=== PATIENT | female | born 1950 | race Caucasian/White ===

== ENCOUNTER 2019-03-15 08:07 | Day surgery (SDC) | payer OTHER ==
[~2019-03-15] VITALS: Ht 157.5 cm; Wt 117.1 kg
[~2019-03-15 08:07] MED LIST: ASPI81CH PO; ASPI81EC PO; ATEN25 PO; Aspir 8181 MG PO; BRIM.15SO OU; CALCIUM PO; CYAN1000 PO; DICL250 PO; FURO40 PO; GABA300 PO; GABA600 PO; GLIM2; HYOS0.375T PO; IBUP800 PO; INSLI100I SC; INSULANI SC; INSULANPEN SQ; LIDO5TP TOP; LOSHYD PO; LOSHYD100 PO; LOVA40; METO25ER PO; Micro-K10 MEQ; Oyster Shell C500 MG PO; PANT40 PO; ROSU10TA PO; ROSU5 PO; SITA100T2 PO; Silvadene20 GM TOP; VITAMIN B122500 MCG PO; [UNRECOGNIZED DRUG - OTHER] PO
--- NOTE | 2019-03-15 09:06 | NUR ---
03/15/19 0906 Kanwal Contreras 1 CODIE RAMIREZ HANDLE IN RIGHT ARM TOOK OUT 2 LEFT AC GOOD
--- NOTE | 2019-03-15 09:37 | NUR ---
03/15/19 0937 Keely Rivas O2 10L VIA FACE MASK
== END 2019-03-15 10:18 | disposition home or self-care (01) ==
LOC: ORSCSDS 08:07
PROVIDERS: Surgery
PROC: 0DJD8ZZ Inspection of Lower Intestinal Tract, Via Natural or Artificial Opening Endoscopic (ICD-10-PCS; principal; 2019-03-15 09:15)
DX: Z12.11 Encounter for screening for malignant neoplasm of colon (principal); I12.9 Hypertensive chronic kidney disease with stage 1 through stage 4 chronic kidney disease, or unspecified chronic kidney disease; E11.22 Type 2 diabetes mellitus with diabetic chronic kidney disease; N18.9 Chronic kidney disease, unspecified; Z79.4 Long term (current) use of insulin; Z79.899 Other long term (current) drug therapy; J44.9 Chronic obstructive pulmonary disease, unspecified; Z87.891 Personal history of nicotine dependence; E66.01 Morbid (severe) obesity due to excess calories; Z68.42 Body mass index [BMI] 45.0-49.9, adult
CPT/HCPCS: 82947; J2405; J2704; J7120

== ENCOUNTER → 2020-04-30 | Outpatient (CLI) | payer OTHER ==
[~2020-04-30] MED LIST changes: +ALPHAGAN P5 ML BOTHEYES; +B-121000 MC3 PO; +BACTRIM DS TAB1 EAC6 PO; +BASAGLAR K100 UNIT/1 SC; +CALCIUM CARBON500 M1 PO; +HUMALOG100 UNIT/1 SC; -INSLI100I SC; +LOSARTAN-HCTZ1 EAC5 PO; -LOSHYD100 PO; -LOVA40; +LOVA40 PO; -Micro-K10 MEQ; +Micro-K10 MEQ PO; -Oyster Shell C500 MG PO; +PANT20 PO; -VITAMIN B122500 MCG PO; +XARELTO20 MG PO
== END ==
LOC: LAB SHORT 18:23 → LAB EV 18:23
DX: L03.115 Cellulitis of right lower limb (principal)
CPT/HCPCS: 87070; 87075; 87205

== ENCOUNTER 2020-06-08 00:39 | Day surgery (SDC) | payer OTHER ==
[~2020-06-08 00:39] MED LIST changes: -ALPHAGAN P5 ML BOTHEYES; -BACTRIM DS TAB1 EAC6 PO; -BASAGLAR K100 UNIT/1 SC; -PANT20 PO; -XARELTO20 MG PO
[2020-07-21] MEDS ORDERED: BASAGLAR K100 UNIT/1 SC (17:40)
[2020-07-21] MEDS ORDERED: ALPHAGAN P5 ML BOTHEYES (18:38)
[2020-07-21] MEDS ORDERED: PANT20 PO (18:39)
[2020-07-27] MEDS ORDERED: ATEN25 PO (16:42)
[2020-07-27] MEDS ORDERED: XARELTO20 MG PO (16:42)
[2020-07-27] MEDS ORDERED: BACTRIM DS TAB1 EAC6 PO (16:42)
== END 2020-06-08 23:58 | disposition home or self-care (01) ==
LOC: WOUND 00:39
DX: E11.622 Type 2 diabetes mellitus with other skin ulcer (principal); L97.821 Non-pressure chronic ulcer of other part of left lower leg limited to breakdown of skin; L97.811 Non-pressure chronic ulcer of other part of right lower leg limited to breakdown of skin; J44.9 Chronic obstructive pulmonary disease, unspecified; I25.10 Atherosclerotic heart disease of native coronary artery without angina pectoris; E11.40 Type 2 diabetes mellitus with diabetic neuropathy, unspecified; E11.51 Type 2 diabetes mellitus with diabetic peripheral angiopathy without gangrene; E11.22 Type 2 diabetes mellitus with diabetic chronic kidney disease; N18.6 End stage renal disease; Z79.4 Long term (current) use of insulin; Z88.5 Allergy status to narcotic agent; Z88.8 Allergy status to other drugs, medicaments and biological substances; Z91.048 Other nonmedicinal substance allergy status; Z87.891 Personal history of nicotine dependence
CPT/HCPCS: G0463

== ENCOUNTER 2020-06-15 00:52 | Day surgery (SDC) | payer OTHER ==
[2020-07-21] MEDS ORDERED: BASAGLAR K100 UNIT/1 SC (17:40)
[2020-07-21] MEDS ORDERED: ALPHAGAN P5 ML BOTHEYES (18:38)
[2020-07-21] MEDS ORDERED: PANT20 PO (18:39)
[2020-07-27] MEDS ORDERED: BACTRIM DS TAB1 EAC6 PO (16:42)
[2020-07-27] MEDS ORDERED: ATEN25 PO (16:42)
[2020-07-27] MEDS ORDERED: XARELTO20 MG PO (16:42)
== END 2020-06-15 22:55 | disposition home or self-care (01) ==
LOC: WOUND 00:52
DX: E11.622 Type 2 diabetes mellitus with other skin ulcer (principal); L97.921 Non-pressure chronic ulcer of unspecified part of left lower leg limited to breakdown of skin; L97.911 Non-pressure chronic ulcer of unspecified part of right lower leg limited to breakdown of skin; E11.59 Type 2 diabetes mellitus with other circulatory complications; I87.2 Venous insufficiency (chronic) (peripheral)
CPT/HCPCS: A9270

== ENCOUNTER 2020-06-23 00:56 | Day surgery (SDC) | payer OTHER ==
[2020-07-21] MEDS ORDERED: BASAGLAR K100 UNIT/1 SC (17:40)
[2020-07-21] MEDS ORDERED: ALPHAGAN P5 ML BOTHEYES (18:38)
[2020-07-21] MEDS ORDERED: PANT20 PO (18:39)
[2020-07-27] MEDS ORDERED: ATEN25 PO (16:42)
[2020-07-27] MEDS ORDERED: XARELTO20 MG PO (16:42)
[2020-07-27] MEDS ORDERED: BACTRIM DS TAB1 EAC6 PO (16:42)
== END 2020-06-23 23:22 | disposition home or self-care (01) ==
LOC: WOUND 00:56
DX: E11.622 Type 2 diabetes mellitus with other skin ulcer (principal); L97.829 Non-pressure chronic ulcer of other part of left lower leg with unspecified severity; L97.819 Non-pressure chronic ulcer of other part of right lower leg with unspecified severity; L03.116 Cellulitis of left lower limb; E11.59 Type 2 diabetes mellitus with other circulatory complications; I87.2 Venous insufficiency (chronic) (peripheral)
CPT/HCPCS: 87070; 87205; G0463

== ENCOUNTER 2020-07-07 00:34 | Day surgery (SDC) | payer OTHER ==
[2020-07-21] MEDS ORDERED: BASAGLAR K100 UNIT/1 SC (17:40)
[2020-07-21] MEDS ORDERED: ALPHAGAN P5 ML BOTHEYES (18:38)
[2020-07-21] MEDS ORDERED: PANT20 PO (18:39)
[2020-07-27] MEDS ORDERED: BACTRIM DS TAB1 EAC6 PO (16:42)
[2020-07-27] MEDS ORDERED: XARELTO20 MG PO (16:42)
[2020-07-27] MEDS ORDERED: ATEN25 PO (16:42)
== END 2020-07-07 22:46 | disposition home or self-care (01) ==
LOC: WOUND 00:34
DX: E11.622 Type 2 diabetes mellitus with other skin ulcer (principal); L98.499 Non-pressure chronic ulcer of skin of other sites with unspecified severity; E11.59 Type 2 diabetes mellitus with other circulatory complications; I87.2 Venous insufficiency (chronic) (peripheral); L03.116 Cellulitis of left lower limb
CPT/HCPCS: A9270; G0463

== ENCOUNTER 2020-07-14 00:32 | Day surgery (SDC) | payer OTHER ==
[2020-07-21] MEDS ORDERED: BASAGLAR K100 UNIT/1 SC (17:40)
[2020-07-21] MEDS ORDERED: ALPHAGAN P5 ML BOTHEYES (18:38)
[2020-07-21] MEDS ORDERED: PANT20 PO (18:39)
[2020-07-27] MEDS ORDERED: ATEN25 PO (16:42)
[2020-07-27] MEDS ORDERED: XARELTO20 MG PO (16:42)
[2020-07-27] MEDS ORDERED: BACTRIM DS TAB1 EAC6 PO (16:42)
== END 2020-07-14 23:17 | disposition home or self-care (01) ==
LOC: WOUND 00:32
DX: E11.622 Type 2 diabetes mellitus with other skin ulcer (principal); E11.59 Type 2 diabetes mellitus with other circulatory complications; I87.2 Venous insufficiency (chronic) (peripheral); L03.116 Cellulitis of left lower limb; R60.9 Edema, unspecified
CPT/HCPCS: A9270

== ENCOUNTER 2020-07-16 00:26 | Day surgery (SDC) | payer OTHER ==
[2020-07-21] MEDS ORDERED: BASAGLAR K100 UNIT/1 SC (17:40)
[2020-07-21] MEDS ORDERED: ALPHAGAN P5 ML BOTHEYES (18:38)
[2020-07-21] MEDS ORDERED: PANT20 PO (18:39)
[2020-07-27] MEDS ORDERED: BACTRIM DS TAB1 EAC6 PO (16:42)
[2020-07-27] MEDS ORDERED: ATEN25 PO (16:42)
[2020-07-27] MEDS ORDERED: XARELTO20 MG PO (16:42)
== END 2020-07-16 23:35 | disposition home or self-care (01) ==
LOC: WOUND 00:26
DX: E11.622 Type 2 diabetes mellitus with other skin ulcer (principal); L97.829 Non-pressure chronic ulcer of other part of left lower leg with unspecified severity; L97.819 Non-pressure chronic ulcer of other part of right lower leg with unspecified severity; E11.59 Type 2 diabetes mellitus with other circulatory complications; L03.116 Cellulitis of left lower limb; I87.2 Venous insufficiency (chronic) (peripheral)
CPT/HCPCS: A9270

== ENCOUNTER 2020-07-21 14:41 | Inpatient (IN) | payer OTHER, MEDICARE ==
[~2020-07-21] VITALS: Ht 160 cm; Wt 116.3 kg
== END 2020-07-27 16:03 | DRG 638 ==
LOC: ER 14:41 → MEDS 21:12 → ENPENDDIS 07-27 15:37 → MEDS 07-27 16:03
PROVIDERS: ADMIT Family Medicine
DX: E11.628 Type 2 diabetes mellitus with other skin complications (principal); L03.116 Cellulitis of left lower limb; Z68.42 Body mass index [BMI] 45.0-49.9, adult; L97.429 Non-pressure chronic ulcer of left heel and midfoot with unspecified severity; L03.115 Cellulitis of right lower limb; K21.9 Gastro-esophageal reflux disease without esophagitis; E78.00 Pure hypercholesterolemia, unspecified; E11.42 Type 2 diabetes mellitus with diabetic polyneuropathy; E11.621 Type 2 diabetes mellitus with foot ulcer; H40.10X0 Unspecified open-angle glaucoma, stage unspecified; M85.80 Other specified disorders of bone density and structure, unspecified site; M19.90 Unspecified osteoarthritis, unspecified site; K58.9 Irritable bowel syndrome, unspecified; E11.51 Type 2 diabetes mellitus with diabetic peripheral angiopathy without gangrene; E11.22 Type 2 diabetes mellitus with diabetic chronic kidney disease; E66.01 Morbid (severe) obesity due to excess calories; D63.1 Anemia in chronic kidney disease; I12.9 Hypertensive chronic kidney disease with stage 1 through stage 4 chronic kidney disease, or unspecified chronic kidney disease; N18.9 Chronic kidney disease, unspecified; I25.10 Atherosclerotic heart disease of native coronary artery without angina pectoris; I48.0 Paroxysmal atrial fibrillation; I87.2 Venous insufficiency (chronic) (peripheral); I87.8 Other specified disorders of veins; E53.8 Deficiency of other specified B group vitamins; E78.5 Hyperlipidemia, unspecified; Z66 Do not resuscitate; Z88.6 Allergy status to analgesic agent; Z88.5 Allergy status to narcotic agent; Z90.710 Acquired absence of both cervix and uterus; Z88.8 Allergy status to other drugs, medicaments and biological substances; Z98.51 Tubal ligation status; Z90.49 Acquired absence of other specified parts of digestive tract; Z87.891 Personal history of nicotine dependence; Z90.721 Acquired absence of ovaries, unilateral; Z79.4 Long term (current) use of insulin; Z91.048 Other nonmedicinal substance allergy status; Z79.899 Other long term (current) drug therapy; Z79.82 Long term (current) use of aspirin; Z86.14 Personal history of Methicillin resistant Staphylococcus aureus infection
CPT/HCPCS: 0241U; 36415; 70450; 71045; 73502; 73630; 80048; 80053; 80069; 80202; 82728; 82947; 83540; 83550; 83605; 83735; 83880; 84443; 84484; 85025; 86140; 87040; 87070; 87075; 87205; 93005; 93010; 93306; 93971; 96365; 96366; 97110; 97162; 97166; 97530; 97535; 99285-25; A9270; C9113; J0690; J1815; J3010; J3370; J7030; J7050

== ENCOUNTER 2021-09-22 16:23 | Inpatient (IN) | payer OTHER ==
[~2021-09-22] VITALS: Ht 160 cm; Wt 116.3 kg
[~2021-09-22 16:23] MED LIST changes: +ALPHAGAN P5 ML BOTHEYES; +BACTRIM DS TAB1 EAC6 PO; +BASAGLAR K100 UNIT/1 SC; +PANT20 PO; +XARELTO20 MG PO
[2021-09-22 17:14] LABS: BASOPHILS ABSOLUTE AUTO 0.03 K/mm3 (0.00-0.23); BASOPHILS PERCENT AUTO 1 % (0-2); EOSINOPHILS PERCENT AUTO 4 % (0-6); Hematocrit 35.5 % (33.0-51.0); IMMATURE GRAN ABSOLUTE AUTO 0.02 K/mm3 (0.00-0.10); IMMATURE GRAN PERCENT AUTO 0 % (0-1); LYMPHOCYTES ABSOLUTE AUTO 1.68 K/mm3 (0.84-5.20); LYMPHOCYTES PERCENT AUTO 30 % (21-46); MONOCYTES ABSOLUTE AUTO 0.57 K/mm3 (0.16-1.47); MONOCYTES PERCENT AUTO 10 % (4-13); Mean Corpuscular HGB 30.8 pg (26.0-34.0); Mean Corpuscular HGB Conc 33.8 g/dL (31.5-36.5); Mean Corpuscular Volume 91 fL (80-100); Mean Platelet Volume 9.6 fL (9.1-12.4); NEUTROPHILS ABSOLUTE AUTO 3.05 K/mm3 (1.96-9.15); NEUTROPHILS PERCENT AUTO 55 % (41-73); Platelet Count 244 K/mm3 (150-400); RDW Coefficient Variation 12.3 % (11.7-14.2); RDW Standard Deviation 40.7 fL (35.1-46.3); White Blood Cell Count 5.55 K/mm3 (4.00-11.30)
[2021-09-22] MEDS ORDERED: FURO20 PO (17:15)
[2021-09-22] MEDS ORDERED: ATOR40TA PO (17:16)
[2021-09-22 17:40] LABS: Albumin, Blood 3.4 g/dL (3.4-5.0); Albumin/Globulin Ratio 0.9 (0.8-1.8); Bilirubin, Total 0.4 mg/dL (0.1-1.0); Bun/Creatinine Ratio 15.6 (12.0-20.0); Calcium, Blood 9.1 mg/dL (8.5-10.1); Creatinine, Blood 0.96 mg/dL (0.40-1.00); Globulin, Blood 3.8 g/dL (2.2-4.0); Potassium, Blood 4.1 mmol/L (3.5-5.5); Total Protein, Blood 7.2 g/dL (6.4-8.2)
[2021-09-23 03:28] LABS: SARS-Cov-2 (COVID-19) PCR, MMC NEGATIVE (NEGATIVE)
[2021-09-23 05:29] LABS: BASOPHILS ABSOLUTE AUTO 0.03 K/mm3 (0.00-0.23); BASOPHILS PERCENT AUTO 1 % (0-2); EOSINOPHILS ABSOLUTE AUTO 0.09 K/mm3 (0.00-0.68); EOSINOPHILS PERCENT AUTO 2 % (0-6); Hematocrit 33.6 % (33.0-51.0); IMMATURE GRAN ABSOLUTE AUTO 0.02 K/mm3 (0.00-0.10); IMMATURE GRAN PERCENT AUTO 0 % (0-1); LYMPHOCYTES ABSOLUTE AUTO 1.74 K/mm3 (0.84-5.20); LYMPHOCYTES PERCENT AUTO 29 % (21-46); MONOCYTES ABSOLUTE AUTO 0.67 K/mm3 (0.16-1.47); MONOCYTES PERCENT AUTO 11 % (4-13); Mean Corpuscular HGB Conc 32.7 g/dL (31.5-36.5); Mean Corpuscular Volume 92 fL (80-100); Mean Platelet Volume 9.5 fL (9.1-12.4); NEUTROPHILS ABSOLUTE AUTO 3.56 K/mm3 (1.96-9.15); NEUTROPHILS PERCENT AUTO 58 % (41-73); Platelet Count 212 K/mm3 (150-400); RDW Coefficient Variation 12.2 % (11.7-14.2); RDW Standard Deviation 40.8 fL (35.1-46.3); Red Blood Cell Count 3.67 M/mm3 (3.80-5.20); White Blood Cell Count 6.11 K/mm3 (4.00-11.30)
[2021-09-23 05:38] LABS: Calcium, Blood 8.8 mg/dL (8.5-10.1); Creatinine, Blood 0.88 mg/dL (0.40-1.00); Potassium, Blood 3.8 mmol/L (3.5-5.5)
--- NOTE | 2021-09-23 07:47 | NUR ---
SUMMARY PT NPO PENDING OR TODAY.LAST XARELTO WAS MONDAY APPROX 6 PM. SUBLIMAZE EFFECTIVE FOR PAIN CONTROL. PT HAS MILD REDNESS AT SITE OF COBAN.
--- NOTE | 2021-09-23 13:54 | NUR ---
[address] PER CINDA
--- NOTE | 2021-09-23 13:55 | NUR ---
[address] PT MEDICATED WITH FENTANYL WHEN RETURNED TO ROOM- REPORTS HAS ABSOLUTELY NO PAIN AFTER FENTANYL GIVEN
--- NOTE | 2021-09-23 17:48 | NUR ---
PT REPORTS PAIN IS BETTER CONTROLLED THIS EVENING COMPARED TO THIS MORNING. PT AWARE OF NPO AFTER MIDNIGHT TONIGHT. RIGHT LEG ELEVATED ON PILLOW WITH ICE. PT ABLE TO WIGGLE TOES, TOES PINK AND WARM. PT REPORTS SLIGHT NUMBNESS AND TINGLING BLE WHICH IS HER NORMAL
--- NOTE | 2021-09-24 07:39 | NUR ---
summary dr wilkins rounding and plans for or today.
[2021-09-24 10:10] LABS: BASOPHILS ABSOLUTE AUTO 0.02 K/mm3 (0.00-0.23); BASOPHILS PERCENT AUTO 0 % (0-2); EOSINOPHILS ABSOLUTE AUTO 0.12 K/mm3 (0.00-0.68); EOSINOPHILS PERCENT AUTO 2 % (0-6); Hematocrit 34.8 % (33.0-51.0); Hemoglobin 11.4 g/dL (11.5-16.0); IMMATURE GRAN ABSOLUTE AUTO 0.02 K/mm3 (0.00-0.10); IMMATURE GRAN PERCENT AUTO 0 % (0-1); LYMPHOCYTES ABSOLUTE AUTO 1.54 K/mm3 (0.84-5.20); LYMPHOCYTES PERCENT AUTO 25 % (21-46); MONOCYTES ABSOLUTE AUTO 0.62 K/mm3 (0.16-1.47); MONOCYTES PERCENT AUTO 10 % (4-13); Mean Corpuscular HGB 31.1 pg (26.0-34.0); Mean Corpuscular HGB Conc 32.8 g/dL (31.5-36.5); Mean Corpuscular Volume 95 fL (80-100); Mean Platelet Volume 9.4 fL (9.1-12.4); NEUTROPHILS ABSOLUTE AUTO 3.85 K/mm3 (1.96-9.15); NEUTROPHILS PERCENT AUTO 63 % (41-73); Platelet Count 200 K/mm3 (150-400); RDW Coefficient Variation 12.1 % (11.7-14.2); RDW Standard Deviation 41.8 fL (35.1-46.3); Red Blood Cell Count 3.67 M/mm3 (3.80-5.20); White Blood Cell Count 6.17 K/mm3 (4.00-11.30)
[2021-09-24 10:32] LABS: Albumin, Blood 3.1 g/dL (3.4-5.0); Albumin/Globulin Ratio 0.8 (0.8-1.8); Bilirubin, Total 0.8 mg/dL (0.1-1.0); Bun/Creatinine Ratio 16.9 (12.0-20.0); Creatinine, Blood 0.77 mg/dL (0.40-1.00); Globulin, Blood 3.9 g/dL (2.2-4.0); Potassium, Blood 4.1 mmol/L (3.5-5.5)
--- NOTE | 2021-09-24 12:30 | NUR ---
PT BEEN TO [facility] BY BED. History, Chart, Medications and Allergies reviewed before start of procedure.Lungs clear T/O to Auscultation. Patient confirms NPO status and agrees with scheduled surgery. Pre-Op teaching done. Pt verbalizes understanding.
--- NOTE | 2021-09-24 16:18 | NUR ---
ASSUMED CARE WIGGLES TOES CAP REFILL WNL DENIES PAIN OR NAUSEA DRSG CDI DROWSY WAKES TO VERBAL STIMULI ORIENTED TO PLACE
--- NOTE | 2021-09-24 18:30 | NUR ---
1600 RETURNED TO ROOM FROM PACU, PT DENIES PAIN. RIGHT FOOT IN SPLINT, WIGGLES TOES SPONTANEOUSLY. IMMEDIATE CAPILLARY REFILL OF TOES. TOES PINK AND WARM. BIOX 87-88% ON ROOM AIR. OXYGEN PLACED AT 3 LITERS TO MAINTAIN BIOX GREATER THAN 90%. PT INSTRUCTED ON COUGHING AND DEEP BREATHING. PT WITH RAMBLING SLIGHTLY SLURRED SPEECH WHICH SHE STATES IS FROM ANESTHESIA. PT ORIENTED X4
--- NOTE | 2021-09-24 18:32 | NUR ---
PT DENIES PAIN. REPORTS SLIGHT TINGLING BLE WHICH IS AT HER BASELINE. ALYSSA DINNER WITHOUT NAUSEA. VOIDED ON BEDPAN CLEAR ANDIE URINE.
--- NOTE | 2021-09-24 21:44 | NUR ---
DNR HOLD FORM FOUND ON PT'S CHART. DISCUSSED CODE STATUS WITH PT, SHE STATES SHE HAS BEEN A DNR AND WISHES TO CONTINUE WITH THAT CODE STATUS. ON-CALL PHYSICIAN CALLED, DNR CODE STATUS REINSTATED.
[2021-09-25 05:07] LABS: BASOPHILS ABSOLUTE AUTO 0.01 K/mm3 (0.00-0.23); BASOPHILS PERCENT AUTO 0 % (0-2); EOSINOPHILS PERCENT AUTO 0 % (0-6); Hemoglobin 11.2 g/dL (11.5-16.0); IMMATURE GRAN ABSOLUTE AUTO 0.05 K/mm3 (0.00-0.10); IMMATURE GRAN PERCENT AUTO 1 % (0-1); LYMPHOCYTES ABSOLUTE AUTO 0.96 K/mm3 (0.84-5.20); LYMPHOCYTES PERCENT AUTO 11 % (21-46); MONOCYTES ABSOLUTE AUTO 0.67 K/mm3 (0.16-1.47); MONOCYTES PERCENT AUTO 8 % (4-13); Mean Corpuscular HGB 30.8 pg (26.0-34.0); Mean Corpuscular HGB Conc 33.9 g/dL (31.5-36.5); Mean Corpuscular Volume 91 fL (80-100); Mean Platelet Volume 9.9 fL (9.1-12.4); NEUTROPHILS ABSOLUTE AUTO 7.26 K/mm3 (1.96-9.15); NEUTROPHILS PERCENT AUTO 81 % (41-73); Platelet Count 220 K/mm3 (150-400); RDW Standard Deviation 39.8 fL (35.1-46.3); Red Blood Cell Count 3.64 M/mm3 (3.80-5.20); White Blood Cell Count 8.95 K/mm3 (4.00-11.30)
--- NOTE | 2021-09-25 05:38 | NUR ---
PT COOPERATIVE WITH CARE AND INTERVENTONS, A&OX4, POD1, NO WEIGHT BEARING TO R. FOOT, NORMA BANDAGE, SPLINT, & PADDING TO R. ANKLE C/D/I, DENIES N/T, CAP REFILL<3 SEC, INDEPENDENT REPOSITION IN HOSPITAL BED. DIABETIC DIET ORDERED, TOLERATING PO INTAKE, LR RUNNING TKO THROUGH R. HAND IV. PT REFUSED COLACE, REPORTS FREQUENT BASELINE DIARRHEA.
[2021-09-25 05:40] LABS: Albumin/Globulin Ratio 0.8 (0.8-1.8); Bilirubin, Total 0.5 mg/dL (0.1-1.0); Calcium, Blood 8.8 mg/dL (8.5-10.1); Creatinine, Blood 1.05 mg/dL (0.40-1.00); Globulin, Blood 3.8 g/dL (2.2-4.0); Potassium, Blood 4.4 mmol/L (3.5-5.5); Total Protein, Blood 6.8 g/dL (6.4-8.2)
--- NOTE | 2021-09-25 11:00 | NUR ---
PATIENT REPORTS HAVING A "PRESSURE ULCER" ON HEAL OF LEFT FOOT. STATES SHE HAS HAD IT FOR OVER A YEAR AND "HAS NOT WALKED ON IT FOR A YEAR AND A HALF". UPON ASSESSMENT, WOUND APPEARS TO BE A DRY SPOT OF FLAKY SKIN. IT IS SLIGHTLY RED IN COLOR, BUT NO OPEN WOUND. PATIENT STATES IT IS PAINFUL TO PUT PRESSURE ON. HEAL MEPILEX PLACED.
--- NOTE | 2021-09-25 17:54 | NUR ---
SHIFT SUMMARY POD 1 ORIF R ANKLE. PATIENT WORKED WITH PT AND [facility] 2 PERSON MODERATE ASSIST W/ FWW & GB. NWB ON R FOOT. PATIENT HAS "PRESSURE ULCER" ON LEFT FOOT HEAL - SEE PREVIOUS NOTE. NO ACUTE CHANGES THIS SHIFT. EATING, DRINKING, & VOIDING WELL. KEPT IV FLUIDS RUNNING D/T LOW PO FLUID INTAKE. MINIMAL PAIN T/O SHIFT, MEDICATED PER EMAR. WILL REPORT TO ONCOMING RN.
--- NOTE | 2021-09-26 04:04 | NUR ---
SHIFT SUMMARY PT A&0X4, POD2, CAST PADDING, SPLINT, AND NORMA BANDAGE TO R. FOOT C/D/I. NO WEIGHT BEARING TO R. FOOT, 2 PERSON ASSIST WITH FWW & GB TO BEDSIDE COMMODE. PATIENT REPORTS ADEQUATE PAIN CONTROL WITH PO PAIN MEDICATION VIA EMAR. VOIDING PATTERN WNL, NO BM SINCE SURGERY, PT REPORTS FEELING OF FULLNESS AND CONSTIPATION, FLATUS NOTED, ENCOURAGED PT TO USE BEDSIDE COMMODE INSTEAD OF BEDPAN. TOLERATING PO INTAKE, ENCOURAGED FLUID INTAKE THROUGHOUT THE NIGHT. .
--- NOTE | 2021-09-26 11:14 | NUR ---
PATIENT UP TO CHAIR FOR ABOUT AN HOUR AND REQUESTED TO GO BACK TO BED. ENCOURAGED PATIENT TO STAY UP IN CHAIR AND EDUCATED OF BENEFITS TO SITTING UP IN CHAIR VS BED. PATIENT REFUSED TO SIT UP IN CHAIR LONGER & FOR LUNCH. WILL CONTINUE TO ENCOURAGE.
--- NOTE | 2021-09-26 16:54 | NUR ---
PATIENT UP TO BSC BUT REFUSES TO SIT UP IN CHAIR AFTER FOR MEAL. REINFORCED IMPORTANCE OF BEING UP TO CHAIR AND CONTINUEING TO ENCOURAGE BEING UP.
--- NOTE | 2021-09-26 17:56 | NUR ---
SHIFT SUMMARY POD 2 ORIF R ANKLE, NWB, 1-2 P ASSIST W/ FWW & GB. NO ACUTE CHANGES THIS SHIFT. TOLERATING TRANSFERS TO THE COMMODE TO VOID, NO BM, REPORTS FLATUS. EATING & DRINKING WELL, NO N/V. WILL REPORT TO ONCOMING RN.
--- NOTE | 2021-09-26 19:25 | NUR ---
RECEIVED REPORT AND ASSUMED CARE OF PT. SHE IS LYING IN BED, A&OX4, REPORTS PAIN CONTROLLED, DENIES ANY NEEDS AT THIS TIME. CALL LIGHT IN REACH.
[2021-09-27 05:04] LABS: BASOPHILS ABSOLUTE AUTO 0.03 K/mm3 (0.00-0.23); BASOPHILS PERCENT AUTO 1 % (0-2); EOSINOPHILS ABSOLUTE AUTO 0.38 K/mm3 (0.00-0.68); EOSINOPHILS PERCENT AUTO 6 % (0-6); Hematocrit 31.2 % (33.0-51.0); Hemoglobin 10.1 g/dL (11.5-16.0); IMMATURE GRAN ABSOLUTE AUTO 0.03 K/mm3 (0.00-0.10); IMMATURE GRAN PERCENT AUTO 1 % (0-1); LYMPHOCYTES ABSOLUTE AUTO 1.82 K/mm3 (0.84-5.20); LYMPHOCYTES PERCENT AUTO 28 % (21-46); MONOCYTES ABSOLUTE AUTO 0.63 K/mm3 (0.16-1.47); MONOCYTES PERCENT AUTO 10 % (4-13); Mean Corpuscular HGB 30.6 pg (26.0-34.0); Mean Corpuscular HGB Conc 32.4 g/dL (31.5-36.5); Mean Corpuscular Volume 95 fL (80-100); NEUTROPHILS ABSOLUTE AUTO 3.55 K/mm3 (1.96-9.15); NEUTROPHILS PERCENT AUTO 55 % (41-73); Platelet Count 233 K/mm3 (150-400); RDW Coefficient Variation 12.4 % (11.7-14.2); RDW Standard Deviation 42.9 fL (35.1-46.3); White Blood Cell Count 6.44 K/mm3 (4.00-11.30)
[2021-09-27 05:47] LABS: Bun/Creatinine Ratio 16.3 (12.0-20.0); Creatinine, Blood 1.04 mg/dL (0.40-1.00); Potassium, Blood 4.2 mmol/L (3.5-5.5)
--- NOTE | 2021-09-27 07:45 | NUR ---
SHIFT SUMMARY: DELMER IS A&OX4, VSS, NO ACUTE EVENTS OVERNIGHT. SHE REPORTS ADEQUATE PAIN CONTROL WITH THE NORCO, IS A TWO-PERSON ASSIST TO THE BEDSIDE COMMODE, AND IS TOLERATING PO INTAKE WELL. SHE IS CONTINENT OF BLADDER AND BOWEL. IV TO RIGHT HAND PATENT. SHE IS LYING IN BED WITH THE CALL LIGHT IN REACH. REPORT GIVEN TO DAY SHIFT RN.
--- NOTE | 2021-09-27 16:37 | NUR ---
SHIFT SUMMARY PT A&OX4, VSS/RA, TELE NSR 67 BPM, CBGS CARB COV. ALYSSA PO, VOIDING WELL/BOWEL CARE PROVIDED PER EMAR, STAND PIVOT W/FWW & GB TO BSC/CHAIR. POD3 ORIF R ANKLE, DRESSING CDI, NWB. PLAN FOR SNF, SISTER AT BEDSIDE. WILL REPORT TO ONCOMING NOC RN.
--- NOTE | 2021-09-28 07:58 | NUR ---
SHIFT SUMMARY: DELMER IS A&OX4. VSS, NO ACUTE EVENTS OVERNIGHT. SHE REPORTS ADEQUATE PAIN CONTROL WITH ONE TABLET OF NORCO, IS A 1-2 PERSON ASSIST TO THE BEDSIDE COMMODE WITH THE FWW AND GAIT BELT, AND HAS HAD TWO BOWEL MOVEMENTS THIS SHIFT. SHE IS TOLERATING PO INTAKE WELL, SPLINT C/D&I TO RLE, IV TO R HAND PATENT. SHE IS LYING IN BED WITH THE CALL LIGHT IN REACH. REPORT GIVEN TO DAY SHIFT RN.
[2021-09-28 10:22] LABS: SARS-Cov-2 (COVID-19) PCR, MMC NEGATIVE (NEGATIVE)
--- NOTE | 2021-09-28 12:54 | NUR ---
SHIFT SUMMARY PT A&OX4, VSS/RA, IV DC'D. ALYSSA PO, VOIDING WELL, BM YESTERDAY, STAND[place]IVOT TO [facility] [place]WW & GB. LEFT WITH TRANSPORT TO [facility] WITH ALL PERSONAL POSSESSIONS. REPORT CALLED TO LUCINDA AT [facility] AT 1230.
== END 2021-09-28 12:45 | DRG 493 ==
LOC: ER 16:23 → SURS 20:21 → ER 22:12 → SURS 22:58
PROVIDERS: Internal Medicine; Orthopaedic Surgery; Physician Assistant; ADMIT Family Medicine
PROC: 0QSG35Z Reposition Right Tibia with External Fixation Device, Percutaneous Approach (ICD-10-PCS; 2021-09-24)
PROC: 0QSG04Z Reposition Right Tibia with Internal Fixation Device, Open Approach (ICD-10-PCS; principal; 2021-09-24 12:30)
DX: S82.851A Displaced trimalleolar fracture of right lower leg, initial encounter for closed fracture (principal); Z68.41 Body mass index [BMI] 40.0-44.9, adult; Z66 Do not resuscitate; Z20.822 Contact with and (suspected) exposure to COVID-19; I48.0 Paroxysmal atrial fibrillation; K58.9 Irritable bowel syndrome, unspecified; E11.40 Type 2 diabetes mellitus with diabetic neuropathy, unspecified; M19.90 Unspecified osteoarthritis, unspecified site; I87.2 Venous insufficiency (chronic) (peripheral); K21.9 Gastro-esophageal reflux disease without esophagitis; E66.01 Morbid (severe) obesity due to excess calories; Z90.49 Acquired absence of other specified parts of digestive tract; Z98.51 Tubal ligation status; Z90.710 Acquired absence of both cervix and uterus; Z98.890 Other specified postprocedural states; Z88.5 Allergy status to narcotic agent; Z88.6 Allergy status to analgesic agent; Z88.8 Allergy status to other drugs, medicaments and biological substances; Z79.4 Long term (current) use of insulin; Z79.01 Long term (current) use of anticoagulants; Z79.82 Long term (current) use of aspirin; Z79.899 Other long term (current) drug therapy; W01.0XXA Fall on same level from slipping, tripping and stumbling without subsequent striking against object, initial encounter
CPT/HCPCS: 27788; 36415; 73610; 73700; 76377; 80048; 80053; 82947; 83036; 85025; 85651; 86140; 94760; 96374; 96375; 96376; 97110; 97161; 97166; 97530; 97535; 99285-25; A9270; C1713; C1769; C9113; G0378; J0171; J0690; J1100; J1170; J1815; J1885; J2405; J2704; J3010; J3480; J7030; J7120; U0004